=== PATIENT | female | born 1985 | race African-American/Black ===

== ENCOUNTER 2018-04-05 05:47 | Emergency (ER) | payer MEDICAID, OTHER ==
[~2018-04-05] VITALS: Ht 167.6 cm; Wt 77.0 kg
[2018-04-05 08:10] LABS: BASOPHILS % 0.5 % (0.0-2.0); EOSINOPHILS % 3.2 % (0.0-5.0); HEMATOCRIT. 30.8 % (36.0-48.0); LYMPHOCYTES % 12.3 % (20.0-50.0); MEAN CORPUSCULAR HEMOGLOBIN 25.1 pg (28.0-32.0); MEAN CORPUSCULAR VOLUME 77.6 fL (81.0-99.0); MEAN PLATELET VOLUME 6.7 fl (7.4-10.4); MONOCYTES % 3.8 % (2.0-8.0); NEUTROPHILS % 80.2 % (40.0-76.0); PLATELET 491 x1000/uL (130-400); RED BLOOD CELL COUNT 3.97 mill/uL (4.2-5.4); RED CELL DISTRIBUTION WIDTH 18.6 % (11.6-14.6)
[2018-04-05 08:17] LABS: CHLORIDE 108 mEq/L (98-107)
[2018-04-05 08:23] LABS: ETHANOL BLOOD 106 mg/dL
[2018-04-05] MEDS ORDERED: ACETAMINOPHEN 325MG TABLET PO ONE (08:45)
[2018-04-05 09:11] LABS: CLARITY URINE CLOUDY (CLEAR); COLOR URINE YELLOW (YELLOW); KETONES URINE NEGATIVE (NEGATIVE); LEUKOCYTE ESTERASE URINE 1+ (NEGATIVE); NITRITE URINE POSITIVE (NEGATIVE); OCCULT BLOOD URINE 3+ (NEGATIVE); PROTEIN URINE TRACE (NEGATIVE); SPECIFIC GRAVITY URINE 1.016 (1.005-1.030)
[2018-04-05 09:45] LABS: *AMPHETAMINES SCREEN URINE NEGATIVE (NEGATIVE); *BENZODIAZEPINES SCREEN URINE NEGATIVE (NEGATIVE); METHADONE URINE SCREEN NEGATIVE (NEGATIVE)
[2018-04-05 09:46] LABS: *BARBITURATES SCREEN URINE NEGATIVE (NEGATIVE); PHENCYCLIDINE URINE SCREEN NEGATIVE (NEGATIVE)
[2018-04-05 09:48] LABS: *COCAINE SCREEN URINE NEGATIVE (NEGATIVE)
[2018-04-05 09:54] LABS: CANNABINOID URINE SCREEN PRESUMTIVE POSITIVE (NEGATIVE); OPIATES URINE SCREEN PRESUMTIVE POSITIVE (NEGATIVE)
[2018-04-05] MEDS ORDERED: IBUPROFEN 600MG TABLET PO ONE (10:15)
[2018-04-05 10:47] VITALS: BP 111/54
== END 2018-04-05 10:49 | disposition home or self-care (01) ==
LOC: ER 05:47
DX: S00.511A Abrasion of lip, initial encounter (principal); M25.551 Pain in right hip; N39.0 Urinary tract infection, site not specified; F17.200 Nicotine dependence, unspecified, uncomplicated; Z88.8 Allergy status to other drugs, medicaments and biological substances; Z88.6 Allergy status to analgesic agent; Y08.89XA Assault by other specified means, initial encounter; Y93.89 Activity, other specified; Y92.89 Other specified places as the place of occurrence of the external cause; Y99.8 Other external cause status
CPT/HCPCS: 36415; 70450; 80053; 80305; 81003; 81025; 85025; 99284; G0482

== ENCOUNTER 2019-05-28 19:52 | Observation (INO) | payer OTHER ==
[~2019-05-28] VITALS: Ht 162.6 cm; Wt 79.0 kg
[2019-05-28 20:01] VITALS: BP 135/86
[2019-05-28] MEDS: LACTATED RINGERS 1,000 ML IV SCH (22:00)
[2019-05-28 22:39] LABS: CLARITY URINE CLOUDY (CLEAR); COLOR URINE YELLOW (YELLOW); KETONES URINE 3+ (NEGATIVE); LEUKOCYTE ESTERASE URINE 2+ (NEGATIVE); NITRITE URINE POSITIVE (NEGATIVE); OCCULT BLOOD URINE TRACE (NEGATIVE); PROTEIN URINE TRACE (NEGATIVE); SPECIFIC GRAVITY URINE 1.021 (1.005-1.030)
[2019-05-28] MEDS ORDERED: ALBU6.7H9 INH (23:09)
[2019-05-29] MEDS ORDERED: CEFAZOLIN 2,000 MG in DEXT 5% WATER 100 ML IV NR ×2
[2019-05-29] MEDS: LACTATED RINGERS 1,000 ML IV SCH ×2 (01:02→04:54)
[2019-05-29] MEDS ORDERED: BETAMETHASONE ACET/BETAMET 30 MG/5 ML VIAL IM ONE (01:30)
[2019-05-29] MEDS ORDERED: ACETAMINOPHEN 500MG TABLET PO SCH (01:30)
[2019-05-29] MEDS: TERBUTALINE SULFATE 1MG/ML VIAL SUBCUT PRN ×2 (04:50→05:57)
[2019-05-29] MEDS ORDERED: BETAMETHASONE ACET/BETAMET 30 MG/5 ML VIAL IM SCH (06:00)
== END 2019-05-29 08:30 | disposition home or self-care (01) ==
LOC: ER 19:52 → L&D 21:13 → 8 EST LDRP 23:50
PROVIDERS: ADMIT Obstetrics & Gynecology; ATTEND Obstetrics & Gynecology
DX: O26.893 Other specified pregnancy related conditions, third trimester (principal); R10.9 Unspecified abdominal pain; M54.9 Dorsalgia, unspecified; O99.333 Smoking (tobacco) complicating pregnancy, third trimester; F17.210 Nicotine dependence, cigarettes, uncomplicated; Z3A.39 39 weeks gestation of pregnancy
CPT/HCPCS: 76805; 76818; 81003; 96365; 96366; 96372; 99281; G0378; J0690; J0702; J3105; J7060; 96360; 96361; J7120

== ENCOUNTER 2019-07-10 14:17 | Observation (INO) | payer MEDICAID, OTHER ==
[~2019-07-10] VITALS: Ht 154.9 cm; Wt 83.5 kg
[~2019-07-10 14:17] MED LIST: ALBU6.7H9 INH
== END 2019-07-10 15:00 | disposition home or self-care (01) ==
LOC: 8 EST LDRP 14:17 → L&D 14:38
PROVIDERS: ADMIT Obstetrics & Gynecology; ATTEND Obstetrics & Gynecology
DX: O12.03 Gestational edema, third trimester (principal); O26.893 Other specified pregnancy related conditions, third trimester; R10.9 Unspecified abdominal pain; O99.89 Other specified diseases and conditions complicating pregnancy, childbirth and the puerperium; M54.9 Dorsalgia, unspecified; Z3A.36 36 weeks gestation of pregnancy
CPT/HCPCS: 99281; G0378